=== PATIENT | female | born 1940 | race African-American/Black ===

== ENCOUNTER 2019-06-06 09:22 | Day surgery (SDC) | payer MEDICARE ==
[2019-06-06] MEDS ORDERED: NACL 0.9% 1000 ML 1,000 ML ONE (10:12)
[2019-06-06] MEDS ORDERED: XYLOCAINE MPF 2% ONE (10:30)
[2019-06-06] MEDS ORDERED: DIPRIVAN 10 MG/ML IV ONE ×2 (10:32)
[2019-06-06] MEDS ORDERED: NACL 0.9% 1000 ML 1,000 ML IV SCH (11:00)
--- NOTE | 2019-06-06 11:42 | Anesthesia Consultation ---
Anesthesia Consult and Med Hx Date of service: 06/06/19 - Airway Anesthetic Teeth Evaluation: Dentures ROM Head & Neck: Adequate Mental/Hyoid Distance: Adequate Mallampati Class: Class II Intubation Access Assessment: Good - Pre-Operative Health Status ASA Pre-Surgery Classification: ASA3 Proposed Anesthetic Plan: MAC - Pulmonary Hx Smoking: No COPD: No - Cardiovascular System Hx Hypertension: Yes - Gastrointestinal Hx Ulcer: Yes - Endocrine Hx Hypothyroidism: Yes
--- NOTE | 2019-06-06 11:43 | Anesthesia Day of Surgery ---
Anesthesia Day of Surgery - Day of Surgery Patient Examined: Yes Patient H&P Reviewed: Yes Patient is NPO: Yes
--- NOTE | 2019-06-06 12:49 | Procedure Note ---
Date of procedure: 06/06/19 Pre-op diagnosis: GERD/ Previous H/O Peptic Ulcer Disease/Colon Polyp Screening Post-op diagnosis: other (Mild to Moderate Erosive Esophagitis/Small Gasric Ulcers/Gasric Erosion/Gastritis/Multiple Colon Polyps (Descending Colon and Transverse Colon)/ No diverticular disease noted) Procedure: EGD with Biopsy/ Colonoscopy with Snare Polypectomy and Cold Biopsy Anesthesia: [facility] [place] Surgeon: STEPHANIE FAUST Estimated blood loss: minimal Pathology: list Specimen disposition: to lab Condition: stable Disposition: same day (Treat with PPI;avodi aspirin and NSAID,otherwise resume home medication. Follow up in 1 to 2 weeks ([phone]).)
--- NOTE | 2019-06-06 13:09 | Operative Report ---
PROCEDURE: Colonoscopy. INDICATIONS: This is a 79-year-old Romanian female who had a colonoscopy as done as part of colon polyp screening. EGD done prior to the colonoscopy had shown small gastric ulcers, gastric erosion gastritis, and esophagitis, and was to be treated with PPI for that. PROCEDURE IN DETAIL: Colonoscopy was done after getting informed consent with MAC anesthesia. Initial rectal exam was unremarkable. Instrument was passed through the rectum onto the cecum, which was identified with ileocecal valve and the appendiceal orifice. Visualization was fair to good. Mucosa was washed with copious amounts of water. There was a lot of fiber residues present, which were washed. The cecum and ascending colon showed normal mucosa. There were a few polyps noted in the transverse colon that were removed by cold snare polypectomy and retrieved using the cold biopsy. There were also several polyps in the descending colon that were also likewise removed by cold snare polypectomy and retrieved using the cold biopsy. There was no diverticular disease noted and there was some minor internal hemorrhoid noted on the retroverted view minute. There was minimal bleeding associated with the polypectomy and no complications associated with the procedure. ASSESSMENT: Colon polyp screening, multiple colon polyps involving the descending colon, the transverse colon that were removed by snare polypectomy, few by cold biopsy and retrieved by using the cold biopsy forceps. No diverticular disease noted. Minor internal hemorrhoids. The patient will be asked to resume home medications, is placed on PPI because of the EGD findings of a small gastric ulcer, gastric erosion gastritis, and esophagitis, and asked to avoid aspirin and aspirin-related products for the next few days, and resume home medication. Follow up in the office in 1-2 weeks' time. The procedure was done in the GI lab with assistance of Anesthesia and with assistance of the GI lab team, which included Brie CLARKE as well as Carla sebastian. JOB# [id number] NIKHIL/SHELBY
[2019-06-06 13:12] VITALS: BP 153/72
--- NOTE | 2019-06-06 16:32 | Operative Report ---
PROCEDURE: Esophagogastroduodenoscopy with biopsy. INDICATIONS: This is a 79-year-old Hebrew female, who has been having GERD symptoms. EGD was done to assess for the problem. DESCRIPTION OF PROCEDURE: The procedure was done after getting informed consent with MAC anesthesia. Instrument was passed through the hypopharynx into the esophagus, which showed [id number] erosive esophagitis. The stomach showed a small gastric ulcer and gastric erosion and gastritis was also noted in the antrum. Biopsy was done from the gastric body, gastric antrum, and angular incisura to rule out for H. pylori and atrophic gastritis. Additional biopsy was done from the distal esophagus to assess for the severity of the esophagitis. The pylorus was patent. The duodenum and the first and the second portion appeared normal. ASSESSMENT: Gastroesophageal reflux disease symptoms, esophagitis, which is mild to moderate, small gastric ulcers, gastritis and gastric erosion. PLAN: To treat the patient with PPI, avoid aspirin and aspirin-related products, and to do a colonoscopy as part of colon polyp screening. Procedure was done in the GI lab with the assistance of the GI lab team, which included Brie CLARKE Regina and the assistance of anesthesia. ____ and a colonoscopy will be done as part of colon polyp screening. The patient will be asked to follow up in the office in 1-2 weeks' time and to avoid aspirin and aspirin-related products for the next 4 days, otherwise, resume home medication. The patient will also be placed on Protonix because of the findings of gastric ulcer, gastric erosion, gastritis, and esophagitis. JOB# [id number] NIKHIL/SHELBY
== END 2019-06-06 13:19 | disposition home or self-care (01) ==
LOC: GIO 09:22
DX: Z12.11 Encounter for screening for malignant neoplasm of colon (principal); K31.89 Other diseases of stomach and duodenum; D12.4 Benign neoplasm of descending colon; D12.3 Benign neoplasm of transverse colon; K64.8 Other hemorrhoids; K29.70 Gastritis, unspecified, without bleeding; K21.0 Gastro-esophageal reflux disease with esophagitis; I10 Essential (primary) hypertension; E11.9 Type 2 diabetes mellitus without complications; E03.9 Hypothyroidism, unspecified; E78.00 Pure hypercholesterolemia, unspecified; Z79.899 Other long term (current) drug therapy
CPT/HCPCS: 43239; 45385; 82962; 88305; 88342; J2704; J7030

== ENCOUNTER 2020-06-28 19:29 | Observation (INO) | payer MEDICARE ==
--- NOTE | 2020-06-28 20:31 | Cat Scan Report ---
CT HEAD WITHOUT CONTRAST INDICATION / CLINICAL INFORMATION: neuro deficits <6hrs or sx present upon awakening. TECHNIQUE: All CT scans at this location are performed using CT dose reduction for ALARA by means of automated e xposure control. COMPARISON: None available. FINDINGS: HEMORRHAGE: No evidence of intracranial hemorrhage or extra-axial fluid collection. EXTRA-AXIAL SPACES: Cortical sulci and sylvian fissures are enlarged reflecting a degree of parenchym al volume loss which is within normal limits for the patient's age of 80 years. Basilar cisterns have an unremarkable appearance. VENTRICULAR SYSTEM: The third and lateral ventricles are enlarged reflecting presence of age related parenchymal volume loss. CEREBRAL PARENCHYMA: Areas of encephalomalacia are noted in the medial aspect of the right occipital lobe secondary to remote right posterior cerebral artery infarction. Additionally is evidence of anselmo te right-sided gangliocapsular infarction. There are associated involutional changes both locations. Additionally noted is periventricular white matter lucency in both cerebral hemispheres consistent wi th moderate microvascular ischemic change. There is no indication of recent infarction on the current examination. MIDLINE SHIFT OR HERNIATION: There is no mass effect. CEREBELLUM / BRAINSTEM: Brainstem has an unremarkable appearance. Age related cerebellar atrophy is n oted. MIDLINE STRUCTURES:Pituitary gland has an unremarkable appearance. No abnormalities are seen in the p ineal region. INTRACRANIAL VESSELS:Calcified atherosclerotic plaque is present along the course of the cavernous se gments of both internal carotid arteries. Similar findings are seen at the distal vertebral arteries. ORBITS: Status post bilateral cataract surgery. The orbits have an otherwise unremarkable appearance. SOFT TISSUES of HEAD: No significant abnormality. CALVARIUM: Evaluation of bone windows reveals no abnormalities. PARANASAL SINUSES / MASTOID AIR CELLS: Paranasal sinuses are free from inflammatory mucosal disease. Mastoid air cells are normally pneumatized. IMPRESSION: 1. 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 2. Age-related involutional changes of atrophy and microvascular ischemia. 3. No acute intracranial abnormalities are identified. CODE STROKE: Time of Communication (HAT FINISHING MATERIALS PREPARER/CDT): 1922 Central standard time. Licensed Practitioner Receiving Report: Dr. Hayes of the [facility] emergency department Signer Name: Corey Corona MD Signed: 06/28/2020 8:26 PM Workstation Name: [id number]
--- NOTE | 2020-06-28 20:44 | Consultation ---
History of Present Illness History of present illness: [facility] Date of Service: 06/28/2020 20:05:54 Impression: Slurred speech - resolved Right-sided sensory loss Comments/Sign-Out: Patient presenting with general/nonspecific illness and report of slurred speech tonight. Son states speech is now baseline. She has mild right hemisensory loss on exam, though. Rule out left hemispheric infarct. No LVO signs/symptoms on exam - her baseline function is poor, so no LVO evaluation would be indicated in any case. Metrics: Last Known Well: 06/28/2020 15:30:00 [employer] Notification Time: 06/28/2020 20:05:28 Arrival Time: 06/28/2020 19:29:00 Stamp Time: 06/28/2020 20:05:54 Time First Login Attempt: 06/28/2020 20:07:00 Video Start Time: 06/28/2020 20:07:00 Symptoms: slurred speech NIHSS Start Assessment Time: 06/28/2020 20:34:00 Patient is not a candidate for Alteplase/Activase. Patient was not deemed candidate for Alteplase/Activase thrombolytics because of LKW > 4.5h, no focal deficit on exam. Video End Time: 06/28/2020 20:40:00 CT head showed no acute hemorrhage or acute core infarct. Clinical Presentation is not Suggestive of Large Vessel Occlusive Disease ED Physician notified of diagnostic impression and management plan on 06/28/2020 20:41:00 Our recommendations are outlined below. Recommendations: Activate Stroke Protocol Admission/Order Set Stroke/Telemetry Floor Neuro Checks Bedside Swallow Eval DVT Prophylaxis IV Fluids, Normal Saline Head of Bed 30 Degrees Euglycemia and Avoid Hyperthermia (PRN Acetaminophen) Antiplatelet Therapy Recommended Routine Consultation with Inhouse Neurology for Follow up Care Sign Out: Discussed with Emergency Department Provider History of Present Illness: Patient is a 80 year old Female. Patient was brought by EMS for symptoms of slurred speech Patient with history of dementia, HTN, HLD, DM2. Family states she has not been feeling well for the last 3 weeks or so, and also having episodes of tripping. Ned family states she was last baseline at 1530 and then developed slurred speech. EMS was eventually summoned. Son is at bedside and states she has not been feeling well, but this is nonspecific. Son states her speech is now back to baseline. Son states patient's baseline is she walks with a cane and requires assist with all ADLs at home. Examination: BP(158/98), Pulse(85), Blood Glucose(131) 1A: Level of Consciousness - Alert; keenly responsive + 0 1B: Ask Month and Age - Could Not Answer Either Question Correctly + 2 1C: Blink Eyes & Squeeze Hands - Performs Both Tasks + 0 2: Test Horizontal Extraocular Movements - Normal + 0 3: Test Visual Gonzalez - No Visual Loss + 0 4: Test Facial Palsy (Use Grimace if Obtunded) - Normal symmetry + 0 5A: Test Left Arm Motor Drift - No Drift for 10 Seconds + 0 5B: Test Right Arm Motor Drift - No Drift for 10 Seconds + 0 6A: Test Left Leg Motor Drift - No Drift for 5 Seconds + 0 6B: Test Right Leg Motor Drift - No Drift for 5 Seconds + 0 7: Test Limb Ataxia (FNF/Heel-Cross) - No Ataxia + 0 8: Test Sensation - Mild-Moderate Loss: Less Sharp/More Dull + 1 9: Test Language/Aphasia - Normal; No aphasia + 0 10: Test Dysarthria - Normal + 0 11: Test Extinction/Inattention - No abnormality + 0 NIHSS Score: 3 Patient/Family was informed the Neurology Consult would happen via TeleHealth consult by way of interactive audio and video telecommunications and consented to receiving care in this manner. Due to the immediate potential for life-threatening deterioration due to u nderlying acute neurologic illness, I spent 35 minutes providing critical care. This time includes time for face to face visit via telemedicine, review of medical records, imaging studies and discussion of findings with providers, the patient and/or family. Dr Walter Frost [employer] Case [id number] Medications and Allergies Allergies Allergy/AdvReac Type Severity Reaction Status Date / Time No Known Allergies Allergy Verified 06/06/19 10:22 Home Medications Medication Instructions Recorded Confirmed Last Taken Type Pantoprazole [Protonix] 40 mg PO QDAY 30 Days #30 tablet 06/06/19 Unknown Rx
[2020-06-28 20:56] LABS: Basophils # (Auto) 0.1 K/mm3 (0.0-0.1); Basophils % (Auto) 0.8 % (0.0-1.8); Eosinophils # (Auto) 0.2 K/mm3 (0.0-0.4); Eosinophils % (Auto) 1.6 % (0.0-4.3); Hematocrit 39.2 % (30.3-42.9); Hemoglobin 13.1 gm/dl (10.1-14.3); Lymphocytes # (Auto) 2.4 K/mm3 (1.2-5.4); Lymphocytes % (Auto) 24.5 % (13.4-35.0); Mean Corpuscular HGB Conc 33 % (30-34); Mean Corpuscular Volume 83 fl (79-97); Monocytes # (Auto) 0.7 K/mm3 (0.0-0.8); Monocytes % (Auto) 7.1 % (0.0-7.3); Platelet Count 451 K/mm3 (140-440); Red Blood Count 4.72 M/mm3 (3.65-5.03); Red Cell Distribution Width 13.5 % (13.2-15.2)
--- NOTE | 2020-06-28 20:56 | Emergency Department Report ---
HPI - General Chief Complaint: Neuro Symptoms/Deficit Time Seen by Provider: 06/28/20 20:23 - HPI HPI: This is a 80-year-old female who presents to the emergency department via EMS from home with complaint of some slurred speech that started about 5 hours prior to presentation. Patient does not speak much Samoan but her son is at bedside translating and giving some history. She has a past medical history of hypertension, diabetes, hypothyroidism, high cholesterol, and a previous CVA without residual deficits. Patient denies any headache but does complain of some blurry vision. At the time of my examination the son says that her slurred speech is back at her normal baseline ability/status. She did not take anything or receive anything for her symptoms prior to presentation. She denies any fever, chest pain, shortness of breath, edema, nausea, vomiting or diaphoresis. ED Past Medical Hx - Past Medical History Hx Hypertension: Yes Hx Diabetes: Yes Hx COPD: No - Social History Smoking Status: Never Smoker - Medications Home Medications: Home Medications Medication Instructions Recorded Confirmed Last Taken Type Pantoprazole [Protonix] 40 mg PO QDAY 30 Days #30 tablet 06/06/19 Unknown Rx ED Review of Systems ROS: Stated complaint: GENERAL ILLNESS Other details as noted in HPI Comment: All other systems reviewed and negative Constitutional: denies: chills, fever Eyes: vision change. denies: eye pain ENT: denies: ear pain, throat pain Respiratory: denies: cough, shortness of breath Cardiovascular: denies: chest pain, palpitations Gastrointestinal: denies: abdominal pain, vomiting Genitourinary: denies: dysuria, discharge Musculoskeletal: denies: back pain, arthralgia Skin: denies: rash, lesions Neurological: other (Slurred speech). denies: headache Physical Exam - Physical Exam Physical Exam: GENERAL: The patient is well-developed well-nourished. HENT: Normocephalic. Atraumatic. Patient has moist mucous membranes. EYES: Extraocular motions are intact. No nystagmus. NECK: Supple. Trachea is midline. CHEST/LUNGS: Clear to auscultation. There is no respiratory distress noted. HEART/CARDIOVASCULAR: Regular. There is no tachycardia. ABDOMEN: Abdomen is soft, nontender. Patient has normal bowel sounds. There is no abdominal distention. SKIN: Skin is warm and dry. NEURO: The patient is awake, alert, and cooperative. Subjective decrease sensation to the right face and arm when compared to the left. No facial asymmetry. MUSCULOSKELETAL: There is no tenderness or deformity. There is no limitation range of motion. ED Course - Reevaluation(s) Reevaluation #1: 06/28/20 22:58 Lab Results 06/28/20 06/28/20 06/28/20 Range/Units 20:46 20:46 20:46 WBC 9.7 (4.5-11.0) K/mm3 RBC 4.72 (3.65-5.03) M/mm3 Hgb 13.1 (10.1-14.3) gm/dl Hct 39.2 (30.3-42.9) % MCV 83 (79-97) fl MCH 28 (28-32) pg MCHC 33 (30-34) % RDW 13.5 (13.2-15.2) % Plt Count 451 H (140-440) K/mm3 Lymph % (Auto) 24.5 (13.4-35.0) % [place] % (Auto) 7.1 (0.0-7.3) % Eos % (Auto) 1.6 (0.0-4.3) % Baso % (Auto) 0.8 (0.0-1.8) % Lymph # (Auto) 2.4 (1.2-5.4) K/mm3 [place] # (Auto) 0.7 (0.0-0.8) K/mm3 Eos # (Auto) 0.2 (0.0-0.4) K/mm3 Baso # (Auto) 0.1 (0.0-0.1) K/mm3 Seg Neutrophils % 66.0 (40.0-70.0) % Seg Neutrophils # 6.4 (1.8-7.7) K/mm3 PT 13.1 (12.2-14.9) Sec. INR 0.97 (0.87-1.13) APTT 27.4 (24.2-36.6) Sec. Thrombin Time (15.1-19.6) Sec. Sodium 139 (137-145) mmol/L Potassium 3.8 (3.6-5.0) mmol/L Chloride 103.1 (98-107) mmol/L Carbon Dioxide 28 (22-30) mmol/L Anion Gap 12 mmol/L BUN 12 (7-17) mg/dL Creatinine 0.6 (0.6-1.2) mg/dL Estimated GFR > 60 ml/min BUN/Creatinine Ratio 20 % Glucose 147 H (65-100) mg/dL POC Glucose (70-105) mg/dL Calcium 9.1 (8.4-10.2) mg/dL Troponin T < 0.010 (0.00-0.029) ng/mL TSH (0.270-4.200) mlU/mL 06/28/20 06/28/20 06/28/20 Range/Units 20:46 21:04 21:12 WBC (4.5-11.0) K/mm3 RBC (3.65-5.03) M/mm3 Hgb (10.1-14.3) gm/dl Hct (30.3-42.9) % MCV (79-97) fl MCH (28-32) pg MCHC (30-34) % RDW (13.2-15.2) % Plt Count (140-440) K/mm3 Lymph % (Auto) (13.4-35.0) % [place] % (Auto) (0.0-7.3) % Eos % (Auto) (0.0-4.3) % Baso % (Auto) (0.0-1.8) % Lymph # (Auto) (1.2-5.4) K/mm3 [place] # (Auto) (0.0-0.8) K/mm3 Eos # (Auto) (0.0-0.4) K/mm3 Baso # (Auto) (0.0-0.1) K/mm3 Seg Neutrophils % (40.0-70.0) % Seg Neutrophils # (1.8-7.7) K/mm3 PT (12.2-14.9) Sec. INR (0.87-1.13) APTT (24.2-36.6) Sec. Thrombin Time 15.2 (15.1-19.6) Sec. Sodium (137-145) mmol/L Potassium (3.6-5.0) mmol/L Chloride (98-107) mmol/L Carbon Dioxide (22-30) mmol/L Anion Gap mmol/L BUN (7-17) mg/dL Creatinine (0.6-1.2) mg/dL Estimated GFR ml/min BUN/Creatinine Ratio % Glucose (65-100) mg/dL POC Glucose 129 H (70-105) mg/dL Calcium (8.4-10.2) mg/dL Troponin T (0.00-0.029) ng/mL TSH 2.420 (0.270-4.200) mlU/mL Reevaluation #2: 06/28/20 22:58 Vital Signs 06/28/20 06/28/20 06/28/20 21:15 21:30 22:29 Pulse Rate 70 67 68 Respiratory 19 17 Rate Blood Pressure 177/67 189/57 167/58 O2 Sat by Pulse 95 96 Oximetry - Consultations Consultation #1: 06/28/20 20:54 Patient was seen by the telemedicine neurologist, Dr. Frost, upon the code stroke being initiated. CT of the head did not show any acute bleed, ischemia, or any other acute process. Dr. Frost gave the patient an NIH stroke scale of 3. The patient is not a TPA candidate as the symptoms began 5 hours prior to presentation and symptoms have improved, if not resolved. He does not feel that the patient has signs of a large vessel occlusion and therefore does not recommend CT angiography studies and does not feel the patient is a thrombectomy candidate. He recommends further emergency department evaluation, followed by admission for stroke work-up including MRI. ED Medical Decision Making - Lab Data Result diagrams: 06/28/20 20:46 06/28/20 20:46 - EKG Data -: EKG Interpreted by Mt EKG shows normal: sinus rhythm, axis, intervals, QRS complexes, ST-T waves Rate: normal - EKG Data When compared to previous EKG there are: previous EKG unavailable Interpretation: normal EKG - Radiology Data Radiology results: report reviewed CT HEAD WITHOUT CONTRAST INDICATION / CLINICAL INFORMATION: neuro deficits <6hrs or sx present upon awakening. TECHNIQUE: All CT scans at this location are performed using CT dose reduction for ALARA by means of automated exposure control. COMPARISON: None available. FINDINGS: HEMORRHAGE: No evidence of intracranial hemorrhage or extra-axial fluid collection. EXTRA-AXIAL SPACES: Cortical sulci and sylvian fissures are enlarged reflecting a degree of parenchymal volume loss which is within normal limits for the patient's age of 80 years. Basilar cisterns have an unremarkable appearance. VENTRICULAR SYSTEM: The third and lateral ventricles are enlarged reflecting presence of age related parenchymal volume loss. CEREBRAL PARENCHYMA: Areas of encephalomalacia are noted in the medial aspect of the right occipital lobe secondary to remote right posterior cerebral artery infarction. Additionally is evidence of remote right- sided gangliocapsular infarction. There are associated involutional changes both locations. Additionally noted is periventricular white matter lucency in both cerebral hemispheres consistent with moderate microvascular ischemic change. There is no indication of recent infarction on the current examination. MIDLINE SHIFT OR HERNIATION: There is no mass effect. CEREBELLUM / BRAINSTEM: Brainstem has an unremarkable appearance. Age related cerebellar atrophy is noted. MIDLINE STRUCTURES:Pituitary gland has an unremarkable appearance. No abnormalities are seen in the pineal region. INTRACRANIAL VESSELS:Calcified atherosclerotic plaque is present along the course of the cavernous segments of both internal carotid arteries. Similar findings are seen at the distal vertebral arteries. ORBITS: Status post bilateral cataract surgery. The orbits have an otherwise unremarkable appearance. SOFT TISSUES of HEAD: No significant abnormality. CALVARIUM: Evaluation of bone windows reveals no abnormalities. PARANASAL SINUSES / MASTOID AIR CELLS: Paranasal sinuses are free from inflammatory mucosa l disease. Mastoid air cells are normally pneumatized. IMPRESSION: 1. 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 2. Age-related involutional changes of atrophy and microvascular ischemia. 3. No acute intracranial abnormalities are identified. - Medical Decision Making This patient presents to the emergency department with complaint of some slurred speech and blurry vision that started about 5 hours prior to presentation. On examination the patient also has some subjective decreased sensation to the rig ht side of the body. She also is unable to answer orientation questions appropriately. A code stroke was initiated upon arrival and the patient was seen by telemedicine neurology. She was given an NIH stroke scale of 3. CT scan of the head without contrast shows remote infarctions but no acute infarct or hemorrhage. Patient has been given some aspirin and IV antihypertensive medication. The patient is not a TPA candidate. She does not appear to be a thrombectomy candidate, nor have signs of a large vessel occlusion. Patient will be admitted to the hospital for further evaluation and has been accepted for admission by the hospitalist, Dr. Moore. Critical Care Time: Yes Critical care time in (mins) excluding proc time.: 35 Critical care attestation.: If time is entered above; I have spent that time in minutes in the direct care of this critically ill patient, excluding procedure time. Critical care time was spent on this patient in doing her initial evaluation, multiple reevaluations, ordering and interpretation of labs and imaging, discussion with the telemedicine neurologist and hospitalist services. Critical Care Time: 35 minutes ED Disposition Clinical Impression: Hypertensive urgency CVA (cerebral vascular accident) Qualifiers: CVA mechanism: unspecified Qualified Code(s): I63.9 - Cerebral infarction, unspecified Disposition: DC-09 OP ADMIT IP TO THIS HOSP Is pt being admited?: Yes Condition: Serious Time of Disposition: 22:07
[2020-06-28 21:06] LABS: INR 0.97 (0.87-1.13)
[2020-06-28 21:07] LABS: Partial Thromboplastin Time 27.4 Sec. (24.2-36.6)
[2020-06-28 21:40] LABS: Blood Urea Nitrogen 12 mg/dL (7-17); Calcium 9.1 mg/dL (8.4-10.2); Hemolysis Index 5
[2020-06-28 21:58] LABS: BUN/Creatinine Ratio 20
[2020-06-28] MEDS ORDERED: ASPIRIN 81 MG TAB CHEW PO ONE (22:06)
[2020-06-28] MEDS ORDERED: hydrALAZINE 20 MG/1 ML INJ IV ONE (22:07)
[2020-06-28] MEDS ORDERED: ACETAMINOPHEN 325 MG TAB PO PRN (22:19)
[2020-06-28] MEDS ORDERED: METOCLOPRAMIDE 10 MG TAB PO PRN (22:19)
[2020-06-28] MEDS ORDERED: PROMETHAZINE 25 MG RECT SUPP PR PRN (22:19)
[2020-06-28] MEDS ORDERED: DEXTROSE 50% IN WATER (25GM) 50 ML SYRINGE IV PRN (22:19)
[2020-06-28] MEDS ORDERED: MAGNESIUM HYDROXIDE (MOM) ORAL LIQD UDC PO PRN (22:19)
[2020-06-28] MEDS ORDERED: ONDANSETRON 4 MG/2 ML INJ IV PRN (22:19)
[2020-06-28] MEDS ORDERED: hydrALAZINE 20 MG/1 ML INJ ONE (22:23)
[2020-06-28] MEDS ORDERED: ASPIRIN 81 MG TAB CHEW ONE (22:23)
--- NOTE | 2020-06-28 22:30 | History and Physical Report ---
History of Present Illness Date of examination: 06/28/20 Date of admission: 06/28/20 22:07 Chief complaint: Slurred speech Right sided numbness History of present illness: 80-year-old [place] Citizen female with a known history of hypertension and diabetes mellitus presenting to the emergency room via EMS today with a complaint of slurred speech and right-sided numbness which started about 5 to 6 hours prior to reporting to the emergency room. Most of the history was gotten from the son who is by the bedside as patient is unable to speak in [place] very well. Patient denies any headache or dizziness, no nausea or vomiting, no fever or chills, no chest pain no shortness of breath. She however had some slurred speech and some blurry vision. Upon presentation in the emergency room symptoms was said to have improved. Patient was evaluated by the teleneurologist and recommendation was to have patient worked up for a CVA. Work-up in the emergency room including CT scan of the head showed :1. 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 2. Age-related involutional changes of atrophy and microvascular ischemia. 3. No acute intracranial abnormalities are identified Past History Past Medical History: diabetes, hypertension, hyperlipidemia Past Surgical History: No surgical history Social history: no significant social history Family history: no significant family history Medications and Allergies Allergies Allergy/AdvReac Type Severity Reaction Status Date / Time No Known Allergies Allergy Verified 06/06/19 10:22 Home Medications Medication Instructions Recorded Confirmed Last Taken Type Pantoprazole [Protonix] 40 mg PO QDAY 30 Days #30 tablet 06/06/19 Unknown Rx Active Meds: Active Medications Acetaminophen (Tylenol) 650 mg PO Q4H PRN PRN Reason: Pain, Mild (1-3) Aspirin (Aspirin) 325 mg PO QDAY [facility] Atorvastatin Calcium (Lipitor) 40 mg PO QHS [facility] Bisacodyl (Dulcolax) 10 mg MN QDAY PRN PRN Reason: Constipation Dextrose (D50w (25gm) Syringe) 50 ml IV Q30MIN PRN; Protocol PRN Reason: Hypoglycemia Enoxaparin Sodium (Enoxaparin) 40 mg SUB-Q QDAY@2200 [facility]; Protocol Insulin Human Lispro (Humalog) 0 unit SUB-Q ACHS [facility]; Protocol Magnesium Hydroxide (Milk Of Magnesia) 30 ml PO Q4H PRN PRN Reason: Constipation Metoclopramide HCl (Reglan) 10 mg PO Q6H PRN PRN Reason: Nausea And Vomiting Ondansetron HCl (Zofran) 4 mg IV Q8H PRN PRN Reason: Nausea And Vomiting Promethazine HCl (Phenergan) 25 mg MN Q6H PRN PRN Reason: Nausea And Vomiting Sodium Chloride (Sodium Chloride Flush Syringe 10 Ml) 10 ml INJ PRN PRN PRN Reason: LINE FLUSH Review of Systems Constitutional: no fever, no chills Ears, nose, mouth and throat: no nasal congestion, no sore throat Cardiovascular: no chest pain, no palpitations Respiratory: no cough, no shortness of breath Gastrointestinal: no abdominal pain, no nausea, no vomiting, no diarrhea Genitourinary Female: no pelvic pain, no dysuria, no hematuria Musculoskeletal: no neck pain, no low back pain Integumentary: no rash, no pruritis Neurological: numbness (Right sided.), change in speech, no headaches, no confusion Psychiatric: no anxiety, no depression Exam - Constitutional Vitals: Temp Pulse Resp BP Pulse Ox 67 17 189/57 96 06/28/20 21:30 06/28/20 21:30 06/28/20 21:30 06/28/20 21:30 General appearance: Present: no acute distress, well-nourished - EENT Eyes: Present: PERRL, EOM intact. Absent: scleral icterus ENT: hearing intact, clear oral mucosa, dentition normal - Neck Neck: Present: supple, normal ROM - Respiratory Respiratory effort: normal Respiratory: bilateral: CTA - Cardiovascular Rhythm: regular Heart Sounds: Present: S1 & S2. Absent: gallop, systolic murmur, diastolic murmur, rub - Extremities Extremities: no ischemia, pulses intact, pulses symmetrical, No edema, Full ROM Peripheral Pulses: within normal limits - Abdominal General gastrointestinal: Present: soft, non-tender, non-distended, normal bowel sounds. Absent: mass - Integumentary Integumentary: Present: clear, warm, dry. Absent: rash - Musculoskeletal Musculoskeletal: strength equal bilaterally - Psychiatric Psychiatric: appropriate mood/affect, intact judgment & insight, memory intact, cooperative - Neurologic Neurologic: CNII-XII intact, no focal deficits, moves all extremities HEART Score - HEART Score Troponin: Troponin T < 0.010 ng/mL (0.00-0.029) 06/28/20 20:46 Results - Labs CBC & Chem 7: 06/28/20 20:46 06/28/20 20:46 Labs: Abnormal lab results 06/28/20 06/28/20 06/28/20 Range/Units 20:46 20:46 21:12 Plt Count 451 H (140-440) K/mm3 Glucose 147 H (65-100) mg/dL POC Glucose 129 H (70-105) mg/dL Assessment and Plan - Patient Problems (1) CVA (cerebral vascular accident) Current Visit: Yes Status: Acute Qualifiers: CVA mechanism: unspecified Qualified Code(s): I63.9 - Cerebral infarction, unspecified Plan to address problem: Patient admitted and placed on telemetry. Will commence patient on aspirin and statin. She will be scheduled for carotid Doppler, MRI of the brain and echocardiogram. We will schedule patient for evaluation by neurologist. (2) Hypertensive urgency Current Visit: Yes Status: Acute Plan to address problem: Patient has had hydralazine in the emergency room. Will monitor vital signs closely and commenced on her routine home medications. (3) Diabetes mellitus Current Visit: Yes Status: Acute Plan to address problem: We will monitor Accu-Cheks closely. (4) DVT prophylaxis Current Visit: Yes Status: Acute Plan to address problem: Patient placed on subcutaneous Lovenox. (5) Full code status Current Visit: Yes Status: Acute
[2020-06-29 04:14] LABS: Bilirubin,Urine NEG (Negative); Blood,Urine NEG (Negative); Color,Urine Yellow (Yellow); Hyaline Casts,Urine 1 /LPF; Mucus,Urine FEW /HPF; Protein,Urine <15 mg/dL mg/dL (Negative); Urobilinogen,Urine < 2.0 mg/dL (<2.0)
[2020-06-29 04:35] LABS: Chol/HDL Ratio 3.15 %
[2020-06-29] MEDS: INSULIN LISPRO 100 UNIT/ML VIAL 3 mL SUB-Q SCH ×2 (07:57→12:30)
[2020-06-29] MEDS ORDERED: ASPIRIN 325 MG TAB PO SCH (10:00)
--- NOTE | 2020-06-29 10:48 | Magnetic Resonance Report ---
NONENHANCED MR SCAN OF THE BRAIN: INDICATION / CLINICAL INFORMATION: Slurred speech; right-sided weakness TECHNIQUE: Multiplanar, multisequence MR images of the brain obtained. COMPARISON: CT scan of the head from 07/02/2020 FINDINGS: BRAIN / INTRACRANIAL CONTENTS: No acute ischemia, acute hemorrhage, mass effect, midline shift, or hy drocephalus. Encephalomalacia in the right posterior cerebral artery territory with cortical laminar necrosis and in the right corpus stratum. Deep hemispheric white matter lesions ([place] 2) due to c hronic small vessel disease CRANIOCERVICAL JUNCTION: No significant abnormality. VASCULAR FLOW-VOIDS: Normal flow signal in the basilar artery and carotid arteries at the level of ca rotid siphon ORBITS: No significant abnormality of visualized orbits. SINUSES / MASTOIDS: No significant abnormality of visualized sinuses and mastoid air cells. ADDITIONAL FINDINGS: None. IMPRESSION: 1. No acute/subacute infarction or hemorrhage; no acute parenchymal lesion Encephalomalacia in the right posterior cerebral artery territory and in the right corpus stratum Signer Name: Lana Mancini MD Signed: 06/29/2020 10:43 AM Workstation Name: [id number]
--- NOTE | 2020-06-29 10:52 | Vascular Lab Report ---
"DUPLEX DOPPLER ULTRASOUND CAROTID, BILATERAL INDICATION: stroke. COMPARISON: None available. FINDINGS: RIGHT CAROTID: Mild calcified plaque is seen scattered within the right carotid system. CCA velocity: 82 cm/sec. ICA peak systolic velocity: 104 cm/sec. ICA/CCA PSV Ratio: 1.3. Right Vertebral Artery: Antegrade flow. LEFT CAROTID: There is very mild calcified plaque throughout. CCA velocity: 91 cm/sec. ICA peak systolic velocity: 74 cm/sec. ICA/CCA PSV Ratio: Less than 1. Left Vertebral Artery: Antegrade flow. IMPRESSION: 1. Right Internal Carotid Artery: Less than 50% diameter stenosis. 2. Left Internal Carotid Artery: Less than 50% diameter stenosis. Velocity criteria are extrapolated from diameter data as defined by the Society of Radiologists in Ul trasound Consensus Conference, Radiology 2003; 229;340-346. Degree of || ICA PSV || Plaque || ICA/CCA Stenosis (%) || (cm/sec) || estimate (%) || PSV Ratio - Normal...............<125..............None.................<2.0 - <50....................<125..............<50....................<2.0 - 50-69................125-230.........>50....................2.0-4.0 - >70 but <100....>230..............>50....................>4.0 - Near...................High, low, .....visible................variable occlusion or none - Total...................None.............visible;................N/A occlusion no lumen Signer Name: Octaviano Concepcion MD Signed: 06/29/2020 10:48 AM Workstation Name: [id number]"
[2020-06-29] MEDS ORDERED: carvediloL 3.125 MG TAB PO SCH (15:00)
[2020-06-29] MEDS ORDERED: amLODIPine 5 MG TAB PO SCH (15:00)
--- NOTE | 2020-06-29 15:01 | Consultation ---
History of Present Illness Consult date: 06/29/20 Reason for Consult: TIA Chief complaint: Transient slurred speech History of present illness: 80 yo female with htn, dm, hld, who presents wit transient slurred speech and noted per teleneurology evaluation with right=sided sensory loss. Patient underwent a MRI Brain w/o contrast which revals no acute findings. CUS/Echo are unremakrable at present for any significant findings. No tamping machine operator road forms is available at present for further history. Past History Past Medical History: diabetes, hypertension, hyperlipidemia Past Surgical History: No surgical history Social history: no significant social history Family history: no significant family history Medications and Allergies Allergies Allergy/AdvReac Type Severity Reaction Status Date / Time No Known Allergies Allergy Verified 06/06/19 10:22 Home Medications Medication Instructions Recorded Confirmed Last Taken Type Pantoprazole [Protonix TAB] 40 mg PO QDAY 30 Days #30 tablet 06/06/19 Unknown Rx Aspirin EC [Halfprin EC] 81 mg PO QDAY #30 tablet. 06/29/20 Unknown Rx AtorvaSTATin [Lipitor] 40 mg PO QHS #30 tablet 06/29/20 Unknown Rx amLODIPine 5 mg PO QDAY #30 tablet 06/29/20 Unknown Rx carvediloL [Coreg] 3.125 mg PO BID #60 tablet 06/29/20 Unknown Rx Active Meds: Active Medications Acetaminophen (Tylenol) 650 mg PO Q4H PRN PRN Reason: Pain, Mild (1-3) Amlodipine Besylate (Amlodipine) 5 mg PO QDAY [facility] Aspirin (Aspirin) 325 mg PO QDAY [facility] Atorvastatin Calcium (Lipitor) 40 mg PO QHS [facility] Bisacodyl (Dulcolax) 10 mg DC QDAY PRN PRN Reason: Constipation Carvedilol (Coreg) 3.125 mg PO BID [facility] Dextrose (D50w (25gm) Syringe) 50 ml IV Q30MIN PRN; Protocol PRN Reason: Hypoglycemia Enoxaparin Sodium (Enoxaparin) 40 mg SUB-Q QDAY@2200 [facility]; Protocol Insulin Human Lispro (Humalog) 0 unit SUB-Q ACHS [facility]; Protocol Last Admin: 06/29/20 12:30 Dose: Not Given Documented by: Magnesium Hydroxide (Milk Of Magnesia) 30 ml PO Q4H PRN PRN Reason: Constipation Metoclopramide HCl (Reglan) 10 mg PO Q6H PRN PRN Reason: Nausea And Vomiting Ondansetron HCl (Zofran) 4 mg IV Q8H PRN PRN Reason: Nausea And Vomiting Pantoprazole Sodium (Protonix) 40 mg PO QDAC [facility] Promethazine HCl (Phenergan) 25 mg DC Q6H PRN PRN Reason: Nausea And Vomiting Sodium Chloride (Sodium Chloride Flush Syringe 10 Ml) 10 ml IV PRN PRN PRN Reason: LINE FLUSH Review of Systems All systems: negative (as per HPI (ROS obtained from EMR; no tamping machine operator road forms is available at present);) Physical Examination - Vital Signs Vital Signs: Vital Signs Pulse Resp BP Pulse Ox 70 19 177/67 95 06/28/20 21:15 06/28/20 21:15 06/28/20 21:15 06/28/20 21:15 - Additional Exam Additional Exam: pt is not able to participate secondary to language barrier and no tamping machine operator road forms is available at present; Results - Laboratory Findings CBC and BMP: 06/28/20 20:46 06/28/20 20:46 Abnormal Lab Findings: Abnormal Labs 06/28/20 06/28/20 06/28/20 20:46 20:46 21:12 Plt Count 451 H Glucose 147 H POC Glucose 129 H Triglycerides Urine WBC (Auto) 06/29/20 06/29/20 06/29/20 03:49 03:57 06:41 Plt Count Glucose POC Glucose 136 H Triglycerides 167 H Urine WBC (Auto) 13.0 H 06/29/20 12:38 Plt Count Glucose POC Glucose 111 H Triglycerides Urine WBC (Auto) Assessment and Plan 80 yo female with htn, dm, hld who presents with a TIA event w/ transient slurred speech and noted with right hemisensory changes per teleneurology in the ED. 1. TIA - Aspirin 325 mg PO qday; Plavix 75 mg (21 days only); statin therapy for a goal LDL of 70; confirm baseline ldl/a1c/tsh-t4; pt/ot evaluation secondary to noted right hemisensory loss per teleneurology evaluaiton in the ED. Long-term risk factor modification including medications, diet, and an exercise regimen. 2. HTN - normotension. 3. DM - maintain euglycemia. 4. HLD - goal LDL of 70. 5. Followup with Stroke Neurology in 4-6 weeks. Tariq Marx MD Neurology
[2020-06-29 17:14] VITALS: BP 153/54
--- NOTE | 2020-06-29 17:49 | Progress Note ---
Subjective Date of service: 06/29/20 Objective - Constitutional Vitals: Vital Signs - 12hr 06/29/20 06/29/20 06/29/20 06:00 06:15 06:21 Temperature Pulse Rate 68 65 64 Respiratory 14 15 15 Rate Blood Pressure 153/57 159/54 159/54 Blood Pressure [Left] O2 Sat by Pulse 96 97 98 Oximetry 06/29/20 06/29/20 06/29/20 06:31 06:40 06:51 Temperature Pulse Rate 72 68 67 Respiratory 15 17 16 Rate Blood Pressure 163/54 163/54 Blood Pressure [Left] O2 Sat by Pulse 98 97 98 Oximetry 06/29/20 06/29/20 06/29/20 07:00 07:11 07:21 Temperature Pulse Rate 66 64 76 Respiratory 16 15 15 Rate Blood Pressure 165/48 165/48 175/66 Blood Pressure [Left] O2 Sat by Pulse 97 98 97 Oximetry 06/29/20 06/29/20 06/29/20 07:30 07:41 07:51 Temperature Pulse Rate 65 72 71 Respiratory 15 15 18 Rate Blood Pressure 163/57 163/57 143/70 Blood Pressure [Left] O2 Sat by Pulse 97 98 97 Oximetry 06/29/20 06/29/20 06/29/20 08:00 08:11 08:21 Temperature Pulse Rate 70 71 68 Respiratory 17 16 16 Rate Blood Pressure 159/52 159/52 149/57 Blood Pressure [Left] O2 Sat by Pulse 96 97 97 Oximetry 06/29/20 06/29/20 06/29/20 08:22 08:30 08:38 Temperature Pulse Rate 78 85 Respiratory 16 17 Rate Blood Pressure 155/61 Blood Pressure 140/78 [Left] O2 Sat by Pulse 98 95 97 Oximetry 06/29/20 06/29/20 06/29/20 09:55 11:38 13:39 Temperature 98.9 F Pulse Rate 92 H 92 H Respiratory 16 Rate Blood Pressure 155/61 187/77 Blood Pressure [Left] O2 Sat by Pulse 98 95 Oximetry 06/29/20 06/29/20 14:04 17:13 Temperature 98.0 F Pulse Rate 78 Respiratory 16 16 Rate Blood Pressure 173/62 153/54 Blood Pressure [Left] O2 Sat by Pulse 96 Oximetry - Labs CBC & Chem 7: 06/28/20 20:46 11/09/20 20:46 Labs: Abnormal lab results 06/28/20 06/28/20 06/28/20 Range/Units 20:46 20:46 21:12 Plt Count 451 H (140-440) K/mm3 Glucose 147 H (65-100) mg/dL POC Glucose 129 H (70-105) mg/dL Triglycerides (2-149) mg/dL Urine WBC (Auto) (0.0-6.0) /HPF 06/29/20 06/29/20 06/29/20 Range/Units 03:49 03:57 06:41 Plt Count (140-440) K/mm3 Glucose (65-100) mg/dL POC Glucose 136 H (70-105) mg/dL Triglycerides 167 H (2-149) mg/dL Urine WBC (Auto) 13.0 H (0.0-6.0) /HPF 06/29/20 06/29/20 Range/Units 12:38 17:27 Plt Count (140-440) K/mm3 Glucose (65-100) mg/dL POC Glucose 111 H 175 H (70-105) mg/dL Triglycerides (2-149) mg/dL Urine WBC (Auto) (0.0-6.0) /HPF HEART Score - HEART Score Troponin: Troponin T < 0.010 ng/mL (0.00-0.029) 06/28/20 20:46
--- NOTE | 2020-06-29 17:52 | Discharge Summary ---
Providers - Providers Date of Admission: 06/28/20 22:07 Date of discharge: 06/29/20 Attending physician: ASHLEE HAWKINS 06/28/20 22:19 Consult to Dietitian/Nutrition [CONS] Routine Physician Instructions: Reason For Exam: Reason for Consult: Diet education Consult to Dietitian/Nutrition [CONS] Routine Physician Instructions: Reason For Exam: Reason for Consult: Nutrition Recommendations Reason for Consult: Diet education Occupational Therapy Evaluate and Treat [CONS] Routine Comment: Reason For Exam: Neuro deficits Physical Therapy Evaluation and Treat [CONS] Routine Comment: Reason For Exam: Neuro deficits 06/28/20 22:23 Consult to Physician [CONS] Routine Comment: Consulting Provider: MAEGAN BARNES Physician Instructions: Reason For Exam: TIA R/O CVA Primary care physician: [employer] Hospitalization Condition: Serious Exam - Constitutional Vitals: Temp Pulse Resp BP Pulse Ox 98.0 F 78 16 153/54 96 06/29/20 17:13 06/29/20 17:13 06/29/20 17:13 06/29/20 17:13 06/29/20 17:13 Plan Activity: advance as tolerated Weight Bearing Status: Non-Weight Bearing Diet: low fat, low salt Follow up with: PRIMARY CARE, [Primary Care Provider] - 7 Days TRACEE PERLA MD [Staff Physician] - 7 Days Prescriptions: AtorvaSTATin [Lipitor] 40 mg PO QHS #30 tablet amLODIPine 5 mg PO QDAY #30 tablet carvediloL [Coreg] 3.125 mg PO BID #60 tablet Aspirin EC [Halfprin EC] 81 mg PO QDAY #30 tablet. Clopidogrel [Plavix] 75 mg PO QDAY #21 tablet
[2020-06-29] MEDS ORDERED: ENOXAPARIN 40 MG/0.4 ML INJ SUB-Q SCH (22:00)
[2020-06-30] MEDS ORDERED: PANTOPRAZOLE 40 MG TAB PO SCH (07:30)
== END 2020-06-29 18:53 | disposition home or self-care (01) ==
LOC: ED 19:29 → 4A 22:07
PROVIDERS: ADMIT Internal Medicine Geriatric Medicine; ATTEND Internal Medicine
DX: I63.9 Cerebral infarction, unspecified (principal); I16.0 Hypertensive urgency; I10 Essential (primary) hypertension; E11.9 Type 2 diabetes mellitus without complications; E78.5 Hyperlipidemia, unspecified; R29.703 NIHSS score 3; Z79.82 Long term (current) use of aspirin; Z79.899 Other long term (current) drug therapy
CPT/HCPCS: 36415; 70450; 70551; 80048; 80061; 81001; 82962; 84443; 84484; 85025; 85610; 85670; 85730; 87076; 87086; 87186; 93005; 93306; 93880; 96374; 99291; G0378; J0360